=== PATIENT | male | born 1995 | race African-American/Black ===

== ENCOUNTER → 2017-06-15 | Outpatient (CLI) | payer OTHER ==
[~2017-06-15] MED LIST: ISOVUE-370 76% 100ML VIAL (Q9967) As Ordered ONE
--- NOTE | 2017-06-15 15:16 | REP ---
CT ANGIO HEAD: HISTORY: Carotid artery aneurysm. CONTRAST: Isovue-370, 75 mL. There is no aneurysm, arteriovenous malformation, or atherosclerotic lesion. Major intracranial vessels are patent. The vertebral arteries are equal in size. IMPRESSION: Normal CT ANGIO head. Signed by William Herrera MD 06/15/2017 03:21 P
--- NOTE | 2017-06-15 16:03 | REP ---
CT ANGIO NECK: HISTORY: Carotid aneurysm. CONTRAST: Isovue-370 100 mL. The distal common carotid arteries and origins of the external and internal carotid arteries are normal. The vertebral arteries are equal in size and patent. There is no aneurysm or atherosclerotic lesion. The origins of the great vessels are normal. IMPRESSION:Normal CT angio neck. Signed by William Herrera MD 06/15/2017 04:18 P
== END ==
LOC: M RAD 14:06
PROVIDERS: ATTEND Family Medicine
DX: I72.0 Aneurysm of carotid artery (principal)
CPT/HCPCS: 70496; 70498; Q9967